=== PATIENT | male | born 1980 | race Caucasian/White ===

== ENCOUNTER 2017-11-20 17:19 | Emergency (ER) | payer OTHER ==
[~2017-11-20] VITALS: Ht 185.4 cm; Wt 93.0 kg
[~2017-11-20 17:19] MED LIST: ALBU.083IS IH; ALBU90OI INH; Albuterol2.5 MG/0.5 INH; HYDACE5325 PO; LORA10ER PO; Prednisone20 MG PO; RXHYD5325 PO; TIOT18 INH
[2017-11-20] MEDS ORDERED: SUMA25 PO (17:43)
== END 2017-11-20 20:09 | disposition home or self-care (01) ==
LOC: ER 17:19
DX: R51 Headache (principal); Z91.018 Allergy to other foods; Z91.013 Allergy to seafood; Z88.1 Allergy status to other antibiotic agents; Z87.891 Personal history of nicotine dependence; Z79.899 Other long term (current) drug therapy
CPT/HCPCS: 96372; 99283; J1100; J1885; Q0163

== ENCOUNTER → 2018-03-01 | Outpatient (CLI) | payer OTHER ==
[~2018-03-01] MED LIST changes: +SUMA25 PO
== END | disposition home or self-care (01) ==
LOC: LAB 23:00 → LAB SHORT 23:00 → LAB FUT 02-26 10:05
DX: R10.11 Right upper quadrant pain (principal)
CPT/HCPCS: 87338